=== PATIENT | male | born 1980 | race Caucasian/White ===

== ENCOUNTER 2024-04-29 19:12 | Emergency (ER) | payer SELFPAY ==
[~2024-04-29] VITALS: Ht 177.8 cm; Wt 90.0 kg
[2024-04-29 19:44] VITALS: TEMP 98.3; O2SAT 100
[2024-04-29] MEDS ORDERED: SULF1TAB48 MT (23:06)
[2024-04-29 23:20] VITALS: BP 135/81; PULSE 89; RESP 19; O2SAT 100
== END 2024-04-30 00:25 | disposition home or self-care (01) ==
LOC: ER 19:12
DX: L02.811 Cutaneous abscess of head [any part, except face] (principal)
CPT/HCPCS: 99283